=== PATIENT | female | born 1945 | race Caucasian/White ===

== ENCOUNTER 2019-09-18 06:09 | Inpatient (IN) | payer BC ==
--- NOTE | 2019-09-17 15:28 | NUR ---
[facility] FAXED AND REPORTED ABNORMAL WBC TO DR. LUCAS CLARK'S ASST. SHE WILL INFORM FRANCISCA BLANTON AND CALL ME BACK.
[2019-09-17 17:22] VITALS: BP 140/78; PULSE 60; RESP 16; TEMP 97
[2019-09-18] VITALS (13 sets, daily range): BP systolic 123–150; BP diastolic 57–74; PULSE 44–62; RESP 14–20; TEMP 97–98.3
[~2019-09-18] VITALS: Ht 154.9 cm; Wt 87.3 kg
[2019-09-18] MEDS ORDERED: SODIUM CHLORIDE 0.9% 1000ML 1,000 ML IV ONE (06:41)
[2019-09-18] MEDS ORDERED: LIDOCAINE HCL 2% 20ML ONE (07:20)
[2019-09-18] MEDS ORDERED: BIVALIRUDIN 250 MG/VIAL IV ONE (07:20)
[2019-09-18] MEDS ORDERED: IOHEXOL 350 MG/ML 100ML INFUS..BTL IV ONE (07:20)
[2019-09-18] MEDS ORDERED: IOHEXOL-350 50ML VIAL IV ONE ×2 (07:20→08:47)
[2019-09-18] MEDS ORDERED: NITROGLYCERIN 2 MG/VIAL VIAL IV ONE (07:20)
[2019-09-18] MEDS ORDERED: MIDAZOLAM HCL 1 MG/ML 2ML VIAL ONE ×2 (07:58→08:36)
[2019-09-18] MEDS ORDERED: FENTANYL CITRATE PF 50 MCG/1 ML 2ML VIAL ONE (07:58)
[2019-09-18] MEDS ORDERED: ASPIRIN 81MG TAB.CHEW ONE (09:08)
[2019-09-18] MEDS ORDERED: TICAGRELOR 90 MG TABLET ONE (09:08)
[2019-09-18] MEDS ORDERED: SODIUM CHLORIDE 0.9% 1000ML 1,000 ML IV SCH (09:22)
[2019-09-18] MEDS ORDERED: METOPROLOL TARTRATE 1 MG/ML 5ML VIAL IV PRN (09:30)
[2019-09-18] MEDS ORDERED: HYDRALAZINE HCL 20 MG/ML VIAL IV PRN (09:30)
[2019-09-18] MEDS ORDERED: GLUCAGON 1MG KIT 1 MG ML IM PRN (09:30)
[2019-09-18] MEDS ORDERED: DEXTROSE 50%-WATER 50 ML DISP.SYRIN IV PRN (09:30)
[2019-09-18] MEDS ORDERED: NITROGLYCERIN 0.4 MG SL TAB SL PRN ×2 (09:30→17:25)
--- NOTE | 2019-09-18 13:35 | NUR ---
report received report from radha moctezuma. pt doing well. lying in bed. bedrest complete. site to right groin soft to touch. no bleeding, oozing noted to site. instructions were given to pt and pts friend by radha moctezuma. no questions at this time.
--- NOTE | 2019-09-18 15:00 | NUR ---
PAIN PT C/O PAIN TO LEFT SIDE OF CHEST. STATES ITS "DULL BUT BETTER THAN WHAT SHE CAME IN WITH". SINUS ON MONITOR. CALLED FRANCISCA BLANTON AND INFORMED OF PAIN. ORDERS RECEIVED TO GIVE 650MG PO X1.
[2019-09-18] MEDS ORDERED: ACETAMINOPHEN 325 MG TAB PO ONE (15:15)
--- NOTE | 2019-09-18 15:59 | NUR ---
EKG INFORMED FRANCISCA BLANTON OF PT CONCERNED WITH PAIN THAT RUNS DOWN UNDERNEATH HER LEFT UNDERARM AND OVER HER BREAST. THE ACETAMINOPHEN DIDNT RELIEVE THE DISCOMFORT. ORDERS RECEIVED TO HAVE AND EKG DONE AND HE WILL COME EVALUATE THE PT.
--- NOTE | 2019-09-18 16:25 | NUR ---
lab mukesh madrigal on phone. order received to draw a stat troponin and he will review ekg
--- NOTE | 2019-09-18 17:10 | NUR ---
LAB INFORMED FRANCISCA BLANTON OF ABNORMAL TROPONIN LEVEL. WILL COME IN TO EVALUATE HER.
--- NOTE | 2019-09-18 17:22 | NUR ---
FRANCISCA HAY HERE. EVALUATED PT. ORDERS RECEIVED TO GIVE HER NITROSTAT 0.4MG SL NOW.
--- NOTE | 2019-09-18 17:50 | NUR ---
ADMISSION PT STATES HER DISCOMFORT HAS GOTTEN A "LITTLE BETTER BUT STILL THERE". SINUS. BP 120/76 P 60 R 18. ORDERS RECEIVED FROM FRANCISCA BLANTON TO ADMIT PT FOR OBSERVATION. NOTIFIED PT. VERBALIZED UNDERSTANDING.
--- NOTE | 2019-09-18 18:00 | NUR ---
REPORT REPORT GIVEN TO AVELINO CONSTANTINO. SITE TO RIGHT GROIN SOFT TO TOUCH. NO BLEEDING, OOZING NOTED TO SITE. PT TRANSFERRED VIA WHEELCHAIR.
[2019-09-18] MEDS ORDERED: LATANOPROST 2.5 ML DROPS OU SCH (21:00)
[2019-09-18] MEDS ORDERED: METOPROLOL TARTRATE 25 MG TAB PO SCH (21:00)
--- NOTE | 2019-09-18 23:13 | NUR ---
C FRANCISCA RUSH NOTIFIED TROPONIN 1.5 , HR 58, LOPRESSOR HELD, PATIENT DENIES CHEST PAIN OR DISCOMFORT
[2019-09-19] MEDS ORDERED: ALBUTEROL SULFATE 0.083% 2.5 MG/3 ML INH IH SCH
[2019-09-19 04:00] VITALS: BP 127/67; PULSE 62; RESP 18; TEMP 97.6
[2019-09-19] MEDS ORDERED: BUDESONIDE 0.5 MG/2 ML INH IH SCH (06:00)
[2019-09-19 07:08] VITALS: PULSE 62; RESP 18
[2019-09-19 08:00] VITALS: BP 134/73; PULSE 59; RESP 18; TEMP 97.8
[2019-09-19] MEDS ORDERED: LOSARTAN 100 MG TABLET PO SCH (09:00)
[2019-09-19] MEDS ORDERED: ESTROGENS,CONJUGATED 0.625 MG TAB PO SCH (09:00)
[2019-09-19] MEDS ORDERED: CLOPIDOGREL BISULFATE 75 MG TAB PO SCH (09:00)
[2019-09-19] MEDS ORDERED: ISOSORBIDE MONO 30MG TAB SR PO SCH (09:00)
[2019-09-19] MEDS ORDERED: COLCHICINE 0.6 MG TABLET PO SCH (09:00)
[2019-09-19] MEDS ORDERED: **HM**(L.acidoph & Paracasei,B.lactis (Probiotic) 1 EACH PO SCH (09:00)
[2019-09-19] MEDS ORDERED: ASPIRIN 81 MG EC TAB PO SCH (09:00)
--- NOTE | 2019-09-19 09:26 | NUR ---
CHART CHECK COMPLETED. Pt IS A 74 Y.O. MALE ADMITTED SECONDARY TO [facility]. Pt HAS A PAST MEDICAL HISTORY SIGNIFICANT FOR CAD, S/P STENT PLACEMENT X2. NO C/O DYSPHAGIA AT THIS TIME. SKILLED SPEECH/SWALLOW EVALUATION NOT WARRANTED. Addendum: 09/19/19 at 0980 by SHARRON RAYA, SPT ST Amended: Links added.
--- NOTE | 2019-09-19 10:45 | NUR ---
GIVEN DISMISSAL INSTRUCTIONS AND SCRIPT FOR [place]. VERBALIZED UNDERSTANDING. REMOVED TELE PACK, REMOVED SALINE LOCK FROM RIGHT FOREARM, IV SITE WITHOUT REDNESS NOTED. AWAITING FOR FAMILY.
--- NOTE | 2019-09-19 12:00 | NUR ---
NUTRITION NOTE RD notification d/t weight loss. Pt admitted secondary to unstable angia. Pt has a past medical history significant for cad, s/p stent placement x2. Insignificant wt loss. Obesity Class II. Pt Pending discharge. Diet order discontinued.
--- NOTE | 2019-09-19 12:25 | NUR ---
TAKEN TO PRIVATE CAR ALONG WITH PERSONAL BELONGINGS VIA WHEELCHAIR BY WALI MATTA.
--- NOTE | 2019-09-19 12:52 | NUR ---
CM NOTE PATIENT DISCHARGED HOME, NO NEEDS VOICED FROM NURSING STAFF. Addendum: 09/19/19 at 1259 by ALVERTO WILLSON RN CM Amended: Links added.
== END 2019-09-19 12:27 | disposition home or self-care (01) | DRG 249 ==
LOC: DAH 06:09 → OBSVTOIN 17:50 → DAH 17:50 → 4DH 17:50
PROVIDERS: ADMIT Internal Medicine Cardiovascular Disease; ATTEND Internal Medicine Cardiovascular Disease
PROC: 4A023N7 Measurement of Cardiac Sampling and Pressure, Left Heart, Percutaneous Approach (ICD-10-PCS; principal; 2019-09-18)
PROC: 02703EZ Dilation of Coronary Artery, One Artery with Two Intraluminal Devices, Percutaneous Approach (ICD-10-PCS; 2019-09-18)
PROC: B2111ZZ Fluoroscopy of Multiple Coronary Arteries using Low Osmolar Contrast (ICD-10-PCS; 2019-09-18)
PROC: B2151ZZ Fluoroscopy of Left Heart using Low Osmolar Contrast (ICD-10-PCS; 2019-09-18)
DX: I25.110 Atherosclerotic heart disease of native coronary artery with unstable angina pectoris (principal); I10 Essential (primary) hypertension; J45.909 Unspecified asthma, uncomplicated; M10.9 Gout, unspecified; E66.9 Obesity, unspecified; Z68.36 Body mass index [BMI] 36.0-36.9, adult

== ENCOUNTER 2019-12-10 06:29 | Observation (INO) | payer BC, MEDICARE ==
[2019-12-07 15:04] LABS: BASOPHILS % (AUTO) 0.2 % (0.0-5.0); EOSINOPHILS % (AUTO) 1.2 % (0.0-8.0); HEMATOCRIT 42.4 % (36-48); LYMPHOCYTES % (AUTO) 23.7 % (21.0-51.0); MEAN CORPUSCULAR HEMOGLOBIN 31.3 pg (27.0-33.0); MEAN CORPUSCULAR HGB CONC 33.5 g/dL (32.0-36.0); MEAN CORPUSCULAR VOLUME 93.6 fL (79-99); MONOCYTES % (AUTO) 6.5 % (3.0-13.0); PLATELET COUNT (AUTO) 141 K/uL (130-400); RED BLOOD CELL COUNT(AUTO) 4.53 MIL/uL (4.00-5.50); RED CELL DISTRIBUTION WIDTH 13.8 % (11.0-15.5); WHITE BLOOD COUNT (AUTO) 9.4 K/uL (4.8-10.8)
[2019-12-07 15:19] LABS: APPEARANCE,URINE Clear (CLEAR); BILIRUBIN,URINE Negative (NEGATIVE); COLOR,URINE Yellow (YELLOW); GLUCOSE, URINE (UA) Negative (NEGATIVE); KETONES,URINE Trace mg/dL (NEGATIVE); LEUKOCYTE ESTERASE ,URINE Trace (NEGATIVE); NITRATE,URINE Negative (NEGATIVE); OCCULT BLOOD,URINE Negative (NEGATIVE); PH,URINE 5.5 (5.0-8.0); PROTEIN,URINE Trace mg/dL (NEGATIVE)
[2019-12-07 15:20] LABS: INR 0.95 (0.85-1.15); PARTIAL THROMBOPLASTIN TIME 24.3 SEC (26.3-35.5); PROTHROMBIN TIME 10.3 SEC (9.6-11.6)
[2019-12-07 15:27] LABS: BACTERIA,URINE Few /HPF (None Seen); RBC,URINE None Seen /HPF (0-1)
[2019-12-07 15:35] LABS: ALBUMIN 3.4 g/dL (3.5-5.0); BILIRUBIN,TOTAL 0.4 mg/dL (0.2-1.0); CREATININE 1.1 mg/dL (0.5-1.5); POTASSIUM 3.9 mmol/L (3.5-5.1); THYROID STIMULATING HORMONE 2.44 uIU/mL (0.36-3.74); TOTAL PROTEIN, SERUM 7.5 g/dL (6.0-8.3)
[~2019-12-10] VITALS: Ht 149.9 cm; Wt 89.1 kg
[2019-12-10] VITALS (11 sets, daily range): BP systolic 94–139; BP diastolic 44–92
[~2019-12-10 06:29] MED LIST: ASPI-556 PO; COLC0.6T67 PO; ESCI10TA54 PO; FLUT1BLS IH; ISOS30TA6 PO; L.AC1CAP6 PO; LATA7.5D OU; METO25TA6 PO; NITR0.4T50 SL; OLMESARTAN PO; PREM625 PO; SODIUM CHLORIDE 0.9% 500ML 500 ML IV SCH; TICA90TA PO; [UNRECOGNIZED DRUG - OTHER] PO
[2019-12-10] MEDS ORDERED: SODIUM CHLORIDE 0.9% 1000ML 1,000 ML IV ONE (06:40)
[2019-12-10] MEDS ORDERED: LIDOCAINE HCL 2% 20ML ONE (07:14)
[2019-12-10] MEDS ORDERED: BIVALIRUDIN 250 MG/VIAL IV ONE (07:14)
[2019-12-10] MEDS ORDERED: IOHEXOL 350 MG/ML 100ML INFUS..BTL IV ONE (07:14)
[2019-12-10] MEDS ORDERED: IOHEXOL-350 50ML VIAL IV ONE ×2 (07:14→08:32)
[2019-12-10] MEDS ORDERED: NITROGLYCERIN 2 MG/VIAL VIAL IV ONE (07:14)
--- NOTE | 2019-12-10 07:20 | NUR ---
PREOP RECEIVED PT FOR LHC. PT AMBULATORY IN NO DISTRESS. PT ORIENTED TO ROOM AND CALL LIGHT. WILL CONTINUE TO MONITOR PT.
--- NOTE | 2019-12-10 07:20 | NUR ---
LINEN GRADER PT TAKEN TO LINEN GRADER VIA BED. PT IN NO DISTRESS
[2019-12-10] MEDS ORDERED: MIDAZOLAM HCL 1 MG/ML 2ML VIAL ONE ×2 (07:30→08:48)
[2019-12-10] MEDS ORDERED: FENTANYL CITRATE PF 50 MCG/1 ML 2ML VIAL ONE ×2 (07:30→08:48)
[2019-12-10] MEDS ORDERED: SODIUM CHLORIDE 0.9% 1000ML 1,000 ML IV SCH (08:50)
[2019-12-10] MEDS ORDERED: NITROGLYCERIN 0.4 MG SL TAB SL PRN (09:00)
[2019-12-10] MEDS: TICAGRELOR 90 MG TABLET PO SCH ×2 (09:00→21:59)
[2019-12-10] MEDS ORDERED: GLUCAGON 1MG KIT 1 MG ML IM PRN (09:00)
[2019-12-10] MEDS ORDERED: DEXTROSE 50%-WATER 50 ML DISP.SYRIN IV PRN (09:00)
[2019-12-10] MEDS ORDERED: HYDRALAZINE HCL 20 MG/ML VIAL IV PRN (09:00)
[2019-12-10] MEDS ORDERED: MORPHINE SULFATE 2 MG/ML 1ML SYG ONE (09:18)
[2019-12-11] VITALS: BP 137/77
[2019-12-11 04:05] VITALS: BP 146/77
[2019-12-11 05:24] LABS: HEMATOCRIT 38.1 % (36-48); MEAN CORPUSCULAR HEMOGLOBIN 31.4 pg (27.0-33.0); MEAN CORPUSCULAR HGB CONC 33.6 g/dL (32.0-36.0); MEAN CORPUSCULAR VOLUME 93.4 fL (79-99); RED BLOOD CELL COUNT(AUTO) 4.08 MIL/uL (4.00-5.50); RED CELL DISTRIBUTION WIDTH 13.8 % (11.0-15.5)
[2019-12-11 05:38] LABS: POTASSIUM 4.1 mmol/L (3.5-5.1)
[2019-12-11 07:30] VITALS: BP 132/75
[2019-12-11 08:00] VITALS: BP 142/68
[2019-12-11] MEDS: TICAGRELOR 90 MG TABLET PO SCH (08:01)
== END 2019-12-11 14:00 | disposition home or self-care (01) ==
LOC: DAH 06:29 → DAHIP 06:30 → DAH 06:30 → 4CH 10:32 → DAH 10:32 → 4CH 11:01 → EDSTATUS 13:00
PROVIDERS: ADMIT Internal Medicine Cardiovascular Disease; ATTEND Internal Medicine Cardiovascular Disease
DX: I20.0 Unstable angina (principal); I10 Essential (primary) hypertension; J45.909 Unspecified asthma, uncomplicated; Z95.5 Presence of coronary angioplasty implant and graft; Z90.49 Acquired absence of other specified parts of digestive tract
CPT/HCPCS: 36415 ×2; 71045; 80048; 80053; 80061; 81001; 84443; 85025; 85027; 85610; 85730; 93005 ×2; 93454; 96360; 96361 ×2; A4215; A4216; A4221; A4222; A4223 ×3; A4606; A4663; C1725; C1769; C1874; C1887; C1894 ×2; C9600; G0378 ×19; J0583; J1644; J2250 ×2; J3010 ×2; J3490 ×2; J7030 ×2; Q9965 ×2; Q9967 ×3; 99156; 99157

== ENCOUNTER 2021-01-27 20:40 | Inpatient (IN) | payer BC, MEDICARE ==
[~2021-01-27] VITALS: Ht 154.9 cm; Wt 77.1 kg
[~2021-01-27 20:40] MED LIST changes: +ALLO300T2 PO; +ATOR10 PO; +DULO20CA18 PO; +ESCI-8 PO; -ESCI10TA54 PO; -ISOS30TA6 PO; +ISOS30TA92 PO; +PRED20TA3 PO; -SODIUM CHLORIDE 0.9% 500ML 500 ML IV SCH; +TRAM50TA2 PO
[2021-01-27 21:20] LABS: BASOPHILS % (AUTO) 0.3 % (0.0-5.0); EOSINOPHILS % (AUTO) 7.6 % (0.0-8.0); HEMATOCRIT 37.2 % (36-48); LYMPHOCYTES % (AUTO) 26.4 % (21.0-51.0); MEAN CORPUSCULAR HEMOGLOBIN 31.4 pg (27.0-33.0); MEAN CORPUSCULAR HGB CONC 33.3 g/dL (32.0-36.0); MEAN CORPUSCULAR VOLUME 94.2 fL (79-99); MONOCYTES % (AUTO) 6.2 % (3.0-13.0); NEUTROPHILS % (AUTO) 59.2 % (40.0-77.0); PLATELET COUNT (AUTO) 149 K/uL (130-400); RED BLOOD CELL COUNT(AUTO) 3.95 MIL/uL (4.00-5.50); RED CELL DISTRIBUTION WIDTH 13.5 % (11.0-15.5); WHITE BLOOD COUNT (AUTO) 11.5 K/uL (4.8-10.8)
[2021-01-27 21:26] LABS: INR 1.08 (0.85-1.15); PROTHROMBIN TIME 11.7 SEC (9.6-11.6)
[2021-01-27 21:44] LABS: HEMOGLOBIN A1C 7.9 % (4.0-6.0)
[2021-01-27] MEDS ORDERED: ONDANSETRON 4MG INJ IV PRN (22:00)
[2021-01-27] MEDS ORDERED: NITROGLYCERIN 0.4 MG SL TAB SL PRN (22:00)
[2021-01-27] MEDS ORDERED: CIPROFLOXACIN HCL 500 MG TABLET PO SCH (22:00)
[2021-01-27] MEDS ORDERED: ACETAMINOPHEN 325 MG TAB PO PRN ×2 (22:00)
[2021-01-27 22:31] LABS: CREATININE 1.2 mg/dL (0.5-1.5); POTASSIUM 4.5 mmol/L (3.5-5.1)
[2021-01-27 22:35] LABS: ALBUMIN 3.2 g/dL (3.5-5.0); BILIRUBIN,TOTAL 0.4 mg/dL (0.2-1.0); MAGNESIUM 1.3 mg/dL (1.80-2.40); TOTAL PROTEIN, SERUM 7.4 g/dL (6.0-8.3)
[2021-01-27] MEDS ORDERED: PIND10TA2 PO (23:18)
[2021-01-28] MEDS ORDERED: TICAGRELOR 90 MG TABLET ONE (00:11)
[2021-01-28] MEDS: TICAGRELOR 90 MG TABLET PO SCH ×3 (00:19→20:33)
[2021-01-28] MEDS ORDERED: GLUCAGON 1MG KIT 1 MG ML IM PRN (00:30)
[2021-01-28] MEDS ORDERED: DEXTROSE 50%-WATER 50 ML DISP.SYRIN IV PRN (00:30)
[2021-01-28 01:33] VITALS: BP 152/75
[2021-01-28] MEDS: MAGNESIUM 2GM PREMIX 50ML 50 ML IV SCH ×2 (01:41→05:59)
[2021-01-28] MEDS ORDERED: HYDROXYZINE 25 MG TABLET PO ONE (02:00)
[2021-01-28] MEDS ORDERED: HYDROXYZINE 25 MG TABLET ONE (02:01)
[2021-01-28 03:45] VITALS: BP 128/71
[2021-01-28 04:51] LABS: BASOPHILS % (AUTO) 0.3 % (0.0-5.0); EOSINOPHILS % (AUTO) 8.4 % (0.0-8.0); HEMATOCRIT 37.7 % (36-48); MEAN CORPUSCULAR HEMOGLOBIN 30.7 pg (27.0-33.0); MEAN CORPUSCULAR HGB CONC 32.9 g/dL (32.0-36.0); MEAN CORPUSCULAR VOLUME 93.3 fL (79-99); MONOCYTES % (AUTO) 5.7 % (3.0-13.0); NEUTROPHILS % (AUTO) 51.1 % (40.0-77.0); PLATELET COUNT (AUTO) 133 K/uL (130-400); RED BLOOD CELL COUNT(AUTO) 4.04 MIL/uL (4.00-5.50); RED CELL DISTRIBUTION WIDTH 13.6 % (11.0-15.5); WHITE BLOOD COUNT (AUTO) 10.9 K/uL (4.8-10.8)
[2021-01-28 05:10] LABS: CREATININE 1.2 mg/dL (0.5-1.5); POTASSIUM 4.1 mmol/L (3.5-5.1)
[2021-01-28 05:21] LABS: BILIRUBIN,TOTAL 0.4 mg/dL (0.2-1.0); MAGNESIUM 1.9 mg/dL (1.80-2.40); TOTAL PROTEIN, SERUM 7.1 g/dL (6.0-8.3)
[2021-01-28] MEDS: INSULIN HUMULIN R 100 UNIT/ML 3ML SQ SCH ×4 (06:01→20:37)
[2021-01-28 08:00] VITALS: BP 136/53
[2021-01-28] MEDS: ALLOPURINOL 300 MG TABLET PO SCH ×2 (09:00→20:34)
[2021-01-28] MEDS: ENOXAPARIN SODIUM 30 MG/0.3 ML SQ SCH (09:00)
[2021-01-28] MEDS: ASPIRIN 81 MG EC TAB PO SCH ×2 (09:00→20:33)
[2021-01-28] MEDS: FAMOTIDINE 20MG TAB PO SCH ×2 (09:00→20:33)
[2021-01-28] MEDS ORDERED: PINDOLOL 5 MG TAB PO SCH (09:00)
[2021-01-28] MEDS ORDERED: ASPIRIN 81 MG EC TAB PO SCH (09:00)
[2021-01-28] MEDS ORDERED: TICAGRELOR 90 MG TABLET PO SCH (09:00)
[2021-01-28 12:00] VITALS: BP 96/55
[2021-01-28] MEDS: LOSARTAN 100 MG TABLET PO SCH (13:10)
[2021-01-28 16:00] VITALS: BP 123/61
[2021-01-28] MEDS ORDERED: NITROGLYCERIN 0.4 MG SL TAB SL PRN (19:30)
[2021-01-28] MEDS ORDERED: PRAV20TA4 PO (19:35)
[2021-01-28 20:04] VITALS: BP 120/54
[2021-01-28] MEDS: ATORVASTATIN 20 MG TABLET PO SCH (20:37)
[2021-01-28] MEDS ORDERED: NON-FORMULARY MEDICATION 1 EACH (Pravastatin Sodium 20 MG) PO SCH (21:00)
[2021-01-29 00:08] VITALS: BP 126/52
[2021-01-29 04:00] VITALS: BP 102/49
[2021-01-29 04:38] LABS: BASOPHILS % (AUTO) 0.4 % (0.0-5.0); EOSINOPHILS % (AUTO) 7.5 % (0.0-8.0); HEMATOCRIT 37.3 % (36-48); LYMPHOCYTES % (AUTO) 36.8 % (21.0-51.0); MEAN CORPUSCULAR HEMOGLOBIN 31.2 pg (27.0-33.0); MEAN CORPUSCULAR VOLUME 94.7 fL (79-99); MONOCYTES % (AUTO) 6.5 % (3.0-13.0); NEUTROPHILS % (AUTO) 48.6 % (40.0-77.0); PLATELET COUNT (AUTO) 129 K/uL (130-400); RED BLOOD CELL COUNT(AUTO) 3.94 MIL/uL (4.00-5.50); RED CELL DISTRIBUTION WIDTH 13.4 % (11.0-15.5); WHITE BLOOD COUNT (AUTO) 9.6 K/uL (4.8-10.8)
[2021-01-29 04:53] LABS: CREATININE 1.3 mg/dL (0.5-1.5); MAGNESIUM 2.1 mg/dL (1.80-2.40); POTASSIUM 3.9 mmol/L (3.5-5.1)
[2021-01-29] MEDS: INSULIN HUMULIN R 100 UNIT/ML 3ML SQ SCH ×4 (06:44→20:31)
[2021-01-29] MEDS ORDERED: CEFTRIAXONE 1G VIAL ONE (07:29)
[2021-01-29] MEDS: CEFTRIAXONE 1G VIAL IVP SCH (07:30)
[2021-01-29 08:00] VITALS: BP 105/36
[2021-01-29] MEDS ORDERED: PREDNISONE 20 MG TABLET PO SCH (09:00)
[2021-01-29 09:29] LABS: APPEARANCE,URINE Clear (CLEAR); BILIRUBIN,URINE Negative (NEGATIVE); COLOR,URINE Dark Yellow (YELLOW); GLUCOSE, URINE (UA) Negative (NEGATIVE); KETONES,URINE Negative (NEGATIVE); LEUKOCYTE ESTERASE ,URINE Negative (NEGATIVE); NITRATE,URINE Negative (NEGATIVE); OCCULT BLOOD,URINE Negative (NEGATIVE); PROTEIN,URINE Negative (NEGATIVE); UROBILINOGEN,URINE 0.2 mg/dL (0.2-1.0)
[2021-01-29] MEDS: ALLOPURINOL 300 MG TABLET PO SCH (10:24)
[2021-01-29] MEDS: TICAGRELOR 90 MG TABLET PO SCH ×2 (10:24→20:44)
[2021-01-29] MEDS: COLCHICINE 0.6 MG TABLET PO SCH (10:24)
[2021-01-29] MEDS: LOSARTAN 100 MG TABLET PO SCH (10:24)
[2021-01-29] MEDS: FAMOTIDINE 20MG TAB PO SCH (10:24)
[2021-01-29] MEDS: ASPIRIN 81 MG EC TAB PO SCH (10:27)
[2021-01-29] MEDS: ENOXAPARIN SODIUM 30 MG/0.3 ML SQ SCH (10:31)
[2021-01-29 12:00] VITALS: BP 125/64
[2021-01-29] MEDS ORDERED: 0.9% NACL 500ML IV.SOLN 500 ML IV SCH (15:30)
[2021-01-29 16:00] VITALS: BP 125/54
[2021-01-29 20:04] VITALS: BP 120/58
[2021-01-29] MEDS: ATORVASTATIN 20 MG TABLET PO SCH (20:45)
[2021-01-29] MEDS ORDERED: ALPRAZOLAM 0.5 MG TABLET PO ONE (22:00)
[2021-01-30] VITALS (14 sets, daily range): BP systolic 90–137; BP diastolic 52–76
[2021-01-30] MEDS: INSULIN HUMULIN R 100 UNIT/ML 3ML SQ SCH ×4 (06:35→20:54)
[2021-01-30] MEDS: CEFTRIAXONE 1G VIAL IVP SCH (06:48)
[2021-01-30] MEDS: ASPIRIN 81 MG EC TAB PO SCH (09:00)
[2021-01-30] MEDS: LOSARTAN 100 MG TABLET PO SCH (09:00)
[2021-01-30] MEDS: COLCHICINE 0.6 MG TABLET PO SCH (09:00)
[2021-01-30] MEDS: TICAGRELOR 90 MG TABLET PO SCH ×2 (09:00→20:58)
[2021-01-30] MEDS: FAMOTIDINE 20MG TAB PO SCH (09:00)
[2021-01-30] MEDS: ALLOPURINOL 300 MG TABLET PO SCH (09:00)
[2021-01-30] MEDS: ENOXAPARIN SODIUM 30 MG/0.3 ML SQ SCH (09:00)
[2021-01-30] MEDS ORDERED: HEPARIN 10,000 UNIT/10ML (1,000 UNIT/ML) VIAL ONE (11:13)
[2021-01-30] MEDS ORDERED: NITROGLYCERIN 50MG VIAL IV ONE (11:13)
[2021-01-30] MEDS ORDERED: NICARDIPINE 25MG INJ IV ONE (11:13)
[2021-01-30] MEDS ORDERED: BIVALIRUDIN 250 MG/VIAL IV ONE (11:13)
[2021-01-30] MEDS ORDERED: IOHEXOL-350 50ML VIAL IV ONE (11:14)
[2021-01-30] MEDS ORDERED: LIDOCAINE HCL 400MG/20ML VIAL ONE (11:14)
[2021-01-30] MEDS ORDERED: IOHEXOL 350 MG/ML 100ML INFUS..BTL IV ONE (11:14)
[2021-01-30] MEDS ORDERED: MIDAZOLAM HCL 1 MG/ML 2ML VIAL ONE ×2 (13:08→13:43)
[2021-01-30] MEDS ORDERED: FENTANYL CITRATE PF 50 MCG/1 ML 2ML VIAL ONE (13:08)
[2021-01-30] MEDS ORDERED: ADENOSINE 90MG VIAL IV ONE (13:41)
[2021-01-30] MEDS ORDERED: HYDRALAZINE 20MG/ML VIAL IV PRN (15:00)
[2021-01-30] MEDS ORDERED: 0.9%NACL 1000ML 1,000 ML IV SCH (15:00)
[2021-01-30] MEDS: ATORVASTATIN 20 MG TABLET PO SCH (20:58)
[2021-01-31] VITALS (11 sets, daily range): BP systolic 114–165; BP diastolic 58–97
[2021-01-31] MEDS ORDERED: HYDROXYZINE 25 MG TABLET PO ONE (02:30)
[2021-01-31 04:11] LABS: BASOPHILS % (AUTO) 0.2 % (0.0-5.0); EOSINOPHILS % (AUTO) 9.6 % (0.0-8.0); HEMATOCRIT 39.2 % (36-48); LYMPHOCYTES % (AUTO) 30.3 % (21.0-51.0); MEAN CORPUSCULAR HEMOGLOBIN 30.8 pg (27.0-33.0); MEAN CORPUSCULAR HGB CONC 32.7 g/dL (32.0-36.0); MEAN CORPUSCULAR VOLUME 94.5 fL (79-99); MONOCYTES % (AUTO) 6.5 % (3.0-13.0); NEUTROPHILS % (AUTO) 53.2 % (40.0-77.0); PLATELET COUNT (AUTO) 126 K/uL (130-400); RED BLOOD CELL COUNT(AUTO) 4.15 MIL/uL (4.00-5.50); RED CELL DISTRIBUTION WIDTH 13.4 % (11.0-15.5); WHITE BLOOD COUNT (AUTO) 9.6 K/uL (4.8-10.8)
[2021-01-31 04:31] LABS: CREATININE 1.1 mg/dL (0.5-1.5); POTASSIUM 4.2 mmol/L (3.5-5.1)
[2021-01-31] MEDS: INSULIN HUMULIN R 100 UNIT/ML 3ML SQ SCH ×4 (06:06→19:57)
[2021-01-31] MEDS: ASPIRIN 81 MG EC TAB PO SCH (08:33)
[2021-01-31] MEDS: COLCHICINE 0.6 MG TABLET PO SCH (08:33)
[2021-01-31] MEDS: FAMOTIDINE 20MG TAB PO SCH (08:33)
[2021-01-31] MEDS: ALLOPURINOL 300 MG TABLET PO SCH (08:33)
[2021-01-31] MEDS: TICAGRELOR 90 MG TABLET PO SCH ×2 (08:33→20:23)
[2021-01-31] MEDS: LOSARTAN 100 MG TABLET PO SCH (08:33)
[2021-01-31] MEDS: ENOXAPARIN SODIUM 30 MG/0.3 ML SQ SCH (08:37)
[2021-01-31] MEDS ORDERED: IOHEXOL-350 75 ML VIAL IV ONE (12:40)
[2021-01-31] MEDS: ATORVASTATIN 20 MG TABLET PO SCH (20:23)
[2021-02-01 03:27] VITALS: BP 145/70
[2021-02-01 03:57] LABS: BASOPHILS % (AUTO) 0.3 % (0.0-5.0); EOSINOPHILS % (AUTO) 10.2 % (0.0-8.0); HEMATOCRIT 37.2 % (36-48); LYMPHOCYTES % (AUTO) 33.9 % (21.0-51.0); MEAN CORPUSCULAR HEMOGLOBIN 31.1 pg (27.0-33.0); MEAN CORPUSCULAR HGB CONC 33.1 g/dL (32.0-36.0); MEAN CORPUSCULAR VOLUME 93.9 fL (79-99); MONOCYTES % (AUTO) 6.5 % (3.0-13.0); NEUTROPHILS % (AUTO) 48.8 % (40.0-77.0); PLATELET COUNT (AUTO) 113 K/uL (130-400); RED BLOOD CELL COUNT(AUTO) 3.96 MIL/uL (4.00-5.50); RED CELL DISTRIBUTION WIDTH 13.5 % (11.0-15.5); WHITE BLOOD COUNT (AUTO) 10.5 K/uL (4.8-10.8)
[2021-02-01] MEDS: INSULIN HUMULIN R 100 UNIT/ML 3ML SQ SCH (05:40)
[2021-02-01 08:11] VITALS: BP 169/78
[2021-02-01] MEDS: LOSARTAN 100 MG TABLET PO SCH (08:52)
[2021-02-01] MEDS: TICAGRELOR 90 MG TABLET PO SCH (08:52)
[2021-02-01] MEDS: FAMOTIDINE 20MG TAB PO SCH (08:52)
[2021-02-01] MEDS: ALLOPURINOL 300 MG TABLET PO SCH (08:53)
[2021-02-01] MEDS: COLCHICINE 0.6 MG TABLET PO SCH (08:53)
[2021-02-01] MEDS: ASPIRIN 81 MG EC TAB PO SCH (08:53)
[2021-02-01] MEDS ORDERED: IPRATROPIUM/ALBUTEROL SULFATE 3 ML SOLUTION IH PRN (10:00)
[2021-02-01] MEDS ORDERED: TICA90TA PO (11:14)
[2021-02-01] MEDS ORDERED: ATOR20TA65 PO (11:30)
[2021-02-01] MEDS ORDERED: PINDOLOL 5 MG TAB PO SCH (11:30)
[2021-02-01 12:10] VITALS: BP 141/74
[2021-02-01] MEDS ORDERED: PIND5 PO (12:21)
== END 2021-02-01 14:40 | disposition home or self-care (01) | DRG 286 ==
LOC: EDH 20:40 → EDHIP 21:22 → 3AH 01-28 01:08
PROVIDERS: ADMIT Internal Medicine; ATTEND Internal Medicine
PROC: 4A023N8 Measurement of Cardiac Sampling and Pressure, Bilateral, Percutaneous Approach (ICD-10-PCS; principal; 2021-01-30)
PROC: B2111ZZ Fluoroscopy of Multiple Coronary Arteries using Low Osmolar Contrast (ICD-10-PCS; 2021-01-30)
PROC: B2151ZZ Fluoroscopy of Left Heart using Low Osmolar Contrast (ICD-10-PCS; 2021-01-30)
PROC: 4A033BC Measurement of Arterial Pressure, Coronary, Percutaneous Approach (ICD-10-PCS; 2021-01-30)
DX: T82.855A Stenosis of coronary artery stent, initial encounter (principal); I50.33 Acute on chronic diastolic (congestive) heart failure; I25.110 Atherosclerotic heart disease of native coronary artery with unstable angina pectoris; Z68.32 Body mass index [BMI] 32.0-32.9, adult; E66.9 Obesity, unspecified; E83.42 Hypomagnesemia; E78.5 Hyperlipidemia, unspecified; Z20.822 Contact with and (suspected) exposure to COVID-19; M10.9 Gout, unspecified; E11.59 Type 2 diabetes mellitus with other circulatory complications; D69.6 Thrombocytopenia, unspecified; I34.0 Nonrheumatic mitral (valve) insufficiency; K31.89 Other diseases of stomach and duodenum; I11.0 Hypertensive heart disease with heart failure; I87.2 Venous insufficiency (chronic) (peripheral); Y83.8 Other surgical procedures as the cause of abnormal reaction of the patient, or of later complication, without mention of misadventure at the time of the procedure; Y92.89 Other specified places as the place of occurrence of the external cause; Z79.899 Other long term (current) drug therapy; Z86.718 Personal history of other venous thrombosis and embolism; Z95.5 Presence of coronary angioplasty implant and graft; Z80.1 Family history of malignant neoplasm of trachea, bronchus and lung; Z80.0 Family history of malignant neoplasm of digestive organs; Z83.3 Family history of diabetes mellitus; Z82.49 Family history of ischemic heart disease and other diseases of the circulatory system
CPT/HCPCS: 36415; 71045; 71270; 80048; 80053; 80061; 81003; 82550; 82948; 83036; 83690; 83735; 83874; 83880; 84484; 85025; 85610; 85651; 86140; 87088; 87635; 93005; 93306; 93356; 93460; 93571; 93572; 93880; 93970; 94640; 99156; 99157; C1760; C1887; C1894; G0378; J0153; J0583; J0696; J1644; J1650; J2250; J3010; J3475; J3490; J7030; Q9967

== ENCOUNTER 2022-05-18 08:00 | Day surgery (SDC) | payer BC, MEDICARE ==
[2022-05-14 15:52] LABS: BASOPHILS % (AUTO) 0.3 % (0.0-5.0); EOSINOPHILS % (AUTO) 6.9 % (0.0-8.0); HEMATOCRIT 41.9 % (36-48); LYMPHOCYTES % (AUTO) 32.8 % (21.0-51.0); MEAN CORPUSCULAR HEMOGLOBIN 31.5 pg (27.0-33.0); MEAN CORPUSCULAR HGB CONC 34.1 g/dL (32.0-36.0); MEAN CORPUSCULAR VOLUME 92.3 fL (79-99); MONOCYTES % (AUTO) 6.3 % (3.0-13.0); NEUTROPHILS % (AUTO) 53.3 % (40.0-77.0); PLATELET COUNT (AUTO) 110 K/uL (130-400); RED BLOOD CELL COUNT(AUTO) 4.54 MIL/uL (4.00-5.50); RED CELL DISTRIBUTION WIDTH 13.7 % (11.0-15.5); WHITE BLOOD COUNT (AUTO) 11.3 K/uL (4.8-10.8)
[2022-05-14 15:54] LABS: APPEARANCE,URINE CLOUDY (CLEAR); BILIRUBIN,URINE NEGATIVE (NEGATIVE); COLOR,URINE YELLOW (YELLOW); GLUCOSE, URINE (UA) NEGATIVE (NEGATIVE); KETONES,URINE NEGATIVE (NEGATIVE); LEUKOCYTE ESTERASE ,URINE 500 Leu/uL (NEGATIVE); NITRATE,URINE 2+ (NEGATIVE); OCCULT BLOOD,URINE NEGATIVE (NEGATIVE); PH,URINE 5.5 (5.0-8.0); PROTEIN,URINE 30 mg/dL (NEGATIVE); UROBILINOGEN,URINE 0.2 mg/dL (0.2-1.0)
[2022-05-14 16:06] LABS: CREATININE 1.2 mg/dL (0.5-1.5); POTASSIUM 3.8 mmol/L (3.5-5.1)
[2022-05-14 16:06] LABS: BACTERIA,URINE MOD /HPF (None Seen); MUCUS,URINE MANY LPF (None Seen); RENAL EPITHELIAL CELLS,URINE RARE /HPF (None Seen); SQUAMOUS EPITHELIAL CELL,UR RARE /HPF (0-2); WBC,URINE TNTC /HPF (0-1)
[2022-05-14 16:08] VITALS: BP 163/83
[2022-05-14 16:10] LABS: INR 1.05 (0.85-1.15); PROTHROMBIN TIME 11.4 SEC (9.6-11.6)
[2022-05-14 16:11] LABS: PARTIAL THROMBOPLASTIN TIME 27.2 SEC (26.3-35.5)
[2022-05-14 16:23] LABS: B-TYPE NATRIURETIC PEPTIDE 37 pg/mL (0-100)
[~2022-05-18] VITALS: Ht 156.2 cm; Wt 82.7 kg
[2022-05-18] VITALS (8 sets, daily range): BP systolic 114–151; BP diastolic 71–87
[~2022-05-18 08:00] MED LIST changes: -ASPI-556 PO; -ATOR10 PO; +CARV12.511 PO; +CEFTRIAXONE 1G VIAL IVP ONE; -DULO20CA18 PO; -ESCI-8 PO; +ESCI10TA PO; +ESTR0.5T PO; -FLUT1BLS IH; -ISOS30TA92 PO; -L.AC1CAP6 PO; -LATA7.5D OU; -METO25TA6 PO; -OLMESARTAN PO; -PREM625 PO; +SEMA0.258 SQ; -TRAM50TA2 PO; -[UNRECOGNIZED DRUG - OTHER] PO
[2022-05-18] MEDS ORDERED: CEFTRIAXONE 1G VIAL IVP SCH (09:30)
[2022-05-18] MEDS ORDERED: HEPARIN 10,000 UNIT/10ML (1,000 UNIT/ML) VIAL ONE (10:37)
[2022-05-18] MEDS ORDERED: IOHEXOL 350 MG/ML 100ML INFUS..BTL IV ONE ×2 (10:38→11:32)
[2022-05-18] MEDS ORDERED: NITROGLYCERIN 50MG VIAL ONE (10:38)
[2022-05-18] MEDS ORDERED: LIDOCAINE HCL 1% MDV 50ML VIAL ONE (10:38)
[2022-05-18] MEDS ORDERED: MIDAZOLAM HCL 1 MG/ML 2ML VIAL ONE (10:38)
[2022-05-18] MEDS ORDERED: FENTANYL CITRATE PF 50 MCG/1 ML 2ML VIAL ONE (10:40)
[2022-05-18] MEDS ORDERED: 0.9%NACL 1000ML 1,000 ML IV SCH (12:00)
[2022-05-18] MEDS ORDERED: NITROGLYCERIN 0.4 MG SL TAB SL PRN (12:00)
[2022-05-18] MEDS ORDERED: GLUCAGON 1MG KIT 1 MG ML IM PRN (12:00)
[2022-05-18] MEDS ORDERED: DEXTROSE 50%-WATER 50 ML DISP.SYRIN IV PRN (12:00)
[2022-05-18] MEDS ORDERED: METOPROLOL TARTRATE 1 MG/ML 5ML VIAL IV PRN (12:00)
[2022-05-18] MEDS ORDERED: INSULIN HUMULIN R 100 UNIT/ML 3ML SQ SCH (16:30)
== END 2022-05-18 14:35 | disposition home or self-care (01) ==
LOC: DAH 08:00
PROVIDERS: ATTEND Internal Medicine Cardiovascular Disease
DX: I25.110 Atherosclerotic heart disease of native coronary artery with unstable angina pectoris (principal); I11.9 Hypertensive heart disease without heart failure; E78.5 Hyperlipidemia, unspecified; I87.2 Venous insufficiency (chronic) (peripheral); M10.9 Gout, unspecified; J45.909 Unspecified asthma, uncomplicated; E66.9 Obesity, unspecified; I25.2 Old myocardial infarction; G90.9 Disorder of the autonomic nervous system, unspecified; R06.02 Shortness of breath; F32.A Depression, unspecified; Z90.49 Acquired absence of other specified parts of digestive tract; Z98.890 Other specified postprocedural states; Z80.9 Family history of malignant neoplasm, unspecified; Z82.49 Family history of ischemic heart disease and other diseases of the circulatory system; Z72.89 Other problems related to lifestyle; Z79.02 Long term (current) use of antithrombotics/antiplatelets; Z79.899 Other long term (current) drug therapy
CPT/HCPCS: 80048; 83880; 85025; 85610; 85730; 87088; 81001; 36415; 71045; 93005; 93458; 87077; 87186; 82948 ×2; 96360; 96361; C1894 ×2; C1760; J3010; J0696; J2250; J1644; J3490 ×2; Q9967; A4215; A4222; A4221; A4663; A4216; A4606; A4223 ×3; 99156; 99157

== ENCOUNTER → 2022-07-16 | Outpatient (CLI) | payer BC, MEDICARE ==
[~2022-07-16] MED LIST changes: -CEFTRIAXONE 1G VIAL IVP ONE
[2022-07-16 09:08] LABS: INR 1.01 (0.85-1.15)
[2022-07-16 09:10] LABS: PARTIAL THROMBOPLASTIN TIME 30.6 SEC (26.3-35.5)
== END | disposition home or self-care (01) ==
LOC: RAH 08:20
PROVIDERS: ATTEND Internal Medicine Cardiovascular Disease
DX: J90 Pleural effusion, not elsewhere classified (principal); I73.9 Peripheral vascular disease, unspecified
CPT/HCPCS: 36415; 76604; 85610; 85730

== ENCOUNTER → 2023-07-01 | Outpatient (CLI) | payer MEDICARE ==
[~2023-07-01] MED LIST changes: -ESTR0.5T PO; +ESTR0.5T2 PO
[2023-07-01 15:20] LABS: CREATININE 1.1 mg/dL (0.5-1.0); POTASSIUM 4.4 mmol/L (3.5-5.1)
== END | disposition home or self-care (01) ==
LOC: LAB 13:49
PROVIDERS: ATTEND Internal Medicine Cardiovascular Disease
DX: I25.110 Atherosclerotic heart disease of native coronary artery with unstable angina pectoris (principal)
CPT/HCPCS: 36415; 80048

== ENCOUNTER → 2023-07-13 | Outpatient (CLI) | payer MEDICARE ==
[~2023-07-13] MED LIST changes: +IOHEXOL 350 MG/ML 100ML INFUS..BTL IV ONE
== END | disposition home or self-care (01) ==
LOC: RAH 11:12
PROVIDERS: ATTEND Internal Medicine Cardiovascular Disease
DX: I25.10 Atherosclerotic heart disease of native coronary artery without angina pectoris (principal); M47.815 Spondylosis without myelopathy or radiculopathy, thoracolumbar region
CPT/HCPCS: 75574; Q9967